=== PATIENT | female | born 1945 | race Caucasian/White ===

== ENCOUNTER → 2017-07-07 | Outpatient (REF) | payer MEDICARE ==
[2017-07-07 20:21] LABS: ALBUMIN 3.5 GM/DL (3.2-5.2); ALBUMIN/GLOBULIN RATIO 0.97 (1.00-1.93); ALKALINE PHOSPHATASE 71 U/L (45-117); ALT/SGPT 28 U/L (12-78); ANION GAP 8 MEQ/L (8-16); AST/SGOT 20 U/L (15-37); BILIRUBIN,TOTAL 1.1 MG/DL (0.2-1.0); BLOOD UREA NITROGEN 18 MG/DL (7-18); CALCIUM LEVEL 8.6 MG/DL (8.8-10.2); CARBON DIOXIDE LEVEL 27 MEQ/L (21-32); CHLORIDE LEVEL 107 MEQ/L (98-107); CHOLESTEROL LEVEL 183 MG/DL (<200); CREATININE FOR GFR 0.93 MG/DL (0.55-1.02); GLOMERULAR FILTRATION RATE > 60.0 (>39); GLUCOSE, FASTING 263 MG/DL (83-110); POTASSIUM SERUM 4.9 MEQ/L (3.5-5.1); SODIUM LEVEL 142 MEQ/L (136-145); TOTAL PROTEIN 7.1 GM/DL (6.4-8.2); TRIGLYCERIDES LEVEL 276 MG/DL (<150)
== END ==
LOC: M SFHCCLAY 10:07
PROVIDERS: ATTEND Family Medicine
DX: E11.65 Type 2 diabetes mellitus with hyperglycemia (principal); E78.00 Pure hypercholesterolemia, unspecified; R30.0 Dysuria
CPT/HCPCS: 36415; 80053; 80061; 81001; 83036; 87088; 87186; G0463

== ENCOUNTER → 2017-10-06 | Outpatient (REF) | payer MEDICARE ==
[2017-10-06 16:35] LABS: ANION GAP 6 MEQ/L (8-16); BLOOD UREA NITROGEN 15 MG/DL (7-18); CALCIUM LEVEL 8.9 MG/DL (8.8-10.2); CARBON DIOXIDE LEVEL 29 MEQ/L (21-32); CHLORIDE LEVEL 104 MEQ/L (98-107); CREATININE FOR GFR 0.96 MG/DL (0.55-1.02); GLOMERULAR FILTRATION RATE > 60.0 (>39); GLUCOSE, FASTING 286 MG/DL (83-110); POTASSIUM SERUM 4.4 MEQ/L (3.5-5.1); SODIUM LEVEL 139 MEQ/L (136-145)
== END ==
LOC: M SFHCCLAY 10:28
PROVIDERS: ATTEND Family Medicine
DX: E11.65 Type 2 diabetes mellitus with hyperglycemia (principal); E78.00 Pure hypercholesterolemia, unspecified; M54.16 Radiculopathy, lumbar region; K21.9 Gastro-esophageal reflux disease without esophagitis; G89.29 Other chronic pain; Z23 Encounter for immunization; Z79.891 Long term (current) use of opiate analgesic; Z79.4 Long term (current) use of insulin; Z79.82 Long term (current) use of aspirin; Z79.899 Other long term (current) drug therapy
CPT/HCPCS: 80048; 81001; 82043; 83036; 87088; 87186; 90732; G0009; G0463

== ENCOUNTER → 2018-01-14 | Outpatient (REF) | payer MEDICARE ==
[2018-01-14 16:58] LABS: ALBUMIN 3.8 GM/DL (3.2-5.2); ALBUMIN/GLOBULIN RATIO 1.03 (1.00-1.93); ALKALINE PHOSPHATASE 76 U/L (45-117); ALT/SGPT 35 U/L (12-78); ANION GAP 5 MEQ/L (8-16); AST/SGOT 24 U/L (7-37); BILIRUBIN,TOTAL 0.9 MG/DL (0.2-1.0); BLOOD UREA NITROGEN 16 MG/DL (7-18); CALCIUM LEVEL 9.4 MG/DL (8.8-10.2); CARBON DIOXIDE LEVEL 31 MEQ/L (21-32); CHLORIDE LEVEL 103 MEQ/L (98-107); CREATININE FOR GFR 0.85 MG/DL (0.55-1.30); GLOMERULAR FILTRATION RATE > 60.0 (>39); GLUCOSE, FASTING 287 MG/DL (70-100); POTASSIUM SERUM 4.7 MEQ/L (3.5-5.1); SODIUM LEVEL 139 MEQ/L (136-145); TOTAL PROTEIN 7.5 GM/DL (6.4-8.2)
[2018-01-14 17:33] LABS: APPEARANCE, URINE HAZY (CLEAR); BACTERIA, URINE AUTO 1+ (NEGATIVE); BILIRUBIN, URINE AUTO NEGATIVE (NEGATIVE); BLOOD, URINE BLOOD NEGATIVE (NEGATIVE); COLOR, URINE YELLOW (YELLOW); GLUCOSE, URINE (UA) AUTO 3+ mg/dL (NEGATIVE); KETONE, URINE AUTO NEGATIVE (NEGATIVE); LEUKOCYTE ESTERASE, URINE AUTO 1+ (NEGATIVE); MUCUS, URINE SMALL (NEGATIVE); NITRITE, URINE AUTO NEGATIVE (NEGATIVE); PROTEIN, URINE AUTO 2+ mg/dL (NEGATIVE); RBC, URINE AUTO 0 /HPF (0-3); SPECIFIC GRAVITY URINE AUTO 1.017 (1.002-1.035); SQUAMOUS EPITHELIAL CELL UR AU 0 /HPF (0-6); UROBILINOGEN, URINE AUTO 0.2 mg/dL (0.0-2.0); WBC, URINE AUTO 14 /HPF (0-3)
[2018-01-14 19:40] LABS: ESTIMATED AVERAGE GLUCOSE 246 MG/DL (60-110); HEMOGLOBIN A1c 10.2 %
== END ==
LOC: M SFHCCLAY 10:48
DX: E11.65 Type 2 diabetes mellitus with hyperglycemia (principal); Z79.4 Long term (current) use of insulin; Z79.899 Other long term (current) drug therapy
CPT/HCPCS: 80053

== ENCOUNTER → 2018-03-11 | Outpatient (REF) | payer MEDICARE ==
[2018-03-12 11:36] LABS: URIC ACID 5.7 MG/DL (2.6-6.0)
[2018-03-12 11:36] LABS: RHEUMATOID FACTOR QUANT < 10.0 IU/ML (<15.0)
[2018-03-12 12:54] LABS: ERYTHROCYTE SEDIMENTATION RATE 22 mm/hr (0-30)
[2018-03-14 00:07] LABS: ANTINUCLEAR ANTIBODIES DIRECT Negative (Negative)
== END ==
LOC: M SFHCCLAY 15:52
DX: E11.618 Type 2 diabetes mellitus with other diabetic arthropathy (principal)
CPT/HCPCS: 84550

== ENCOUNTER → 2018-03-11 | Outpatient (CLI) | payer MEDICARE | LOC: M CLY 16:08 | DX: E11.618 Type 2 diabetes mellitus with other diabetic arthropathy (principal) | CPT/HCPCS: 73130; 84550 ==

== ENCOUNTER → 2018-09-16 | Outpatient (REF) | payer MEDICARE ==
[2018-09-16 12:57] LABS: ALBUMIN 3.4 GM/DL (3.2-5.2); ALBUMIN/GLOBULIN RATIO 0.94 (1.00-1.93); ALKALINE PHOSPHATASE 67 U/L (45-117); ALT/SGPT 39 U/L (12-78); ANION GAP 10 MEQ/L (8-16); AST/SGOT 30 U/L (7-37); BILIRUBIN,TOTAL 0.7 MG/DL (0.2-1.0); BLOOD UREA NITROGEN 24 MG/DL (7-18); CARBON DIOXIDE LEVEL 27 MEQ/L (21-32); CHLORIDE LEVEL 103 MEQ/L (98-107); CHOLESTEROL LEVEL 166 MG/DL (<200); CHOLESTEROL RISK RATIO 4.256 (<5); CREATININE FOR GFR 1.03 MG/DL (0.55-1.30); GLOMERULAR FILTRATION RATE 55.8 (>39); GLUCOSE, FASTING 234 MG/DL (70-100); HDL CHOLESTEROL 39 MG/DL (>40); NON-HDL-C 127 MG/DL; POTASSIUM SERUM 4.7 MEQ/L (3.5-5.1); SODIUM LEVEL 140 MEQ/L (136-145); TRIGLYCERIDES LEVEL 408 MG/DL (<150)
== END ==
LOC: M LABDRAWC 11:26
DX: E78.00 Pure hypercholesterolemia, unspecified (principal)
CPT/HCPCS: 80053

== ENCOUNTER → 2018-11-02 | Outpatient (REF) | payer MEDICARE | LOC: M SFHCCLAY 10:24 | PROVIDERS: ATTEND Family Medicine | DX: M54.16 Radiculopathy, lumbar region (principal); R30.0 Dysuria | CPT/HCPCS: 81002; 87088; 87186; G0463 ==

== ENCOUNTER → 2019-01-25 | Outpatient (REF) | payer MEDICARE ==
[2019-01-25 16:32] LABS: ALBUMIN 3.5 GM/DL (3.2-5.2); ALT/SGPT 35 U/L (12-78); BILIRUBIN,TOTAL 0.7 MG/DL (0.2-1.0); BLOOD UREA NITROGEN 15 MG/DL (7-18); CALCIUM LEVEL 8.1 MG/DL (8.8-10.2); CARBON DIOXIDE LEVEL 28 MEQ/L (21-32); CHLORIDE LEVEL 107 MEQ/L (98-107); CHOLESTEROL LEVEL 184 MG/DL (<200); CREATININE FOR GFR 0.94 MG/DL (0.55-1.30); GLOMERULAR FILTRATION RATE > 60.0 (>39); GLUCOSE, FASTING 204 MG/DL (70-100); HDL CHOLESTEROL 42 MG/DL (>40); LDL CHOLESTEROL 92 MG/DL (<100); NON-HDL-C 142 MG/DL; POTASSIUM SERUM 4.2 MEQ/L (3.5-5.1); SODIUM LEVEL 142 MEQ/L (136-145); TOTAL PROTEIN 6.9 GM/DL (6.4-8.2); TRIGLYCERIDES LEVEL 252 MG/DL (<150)
[2019-01-25 16:48] LABS: CREATININE, URINE 64.2 MG/DL; MAU/CREAT RATIO 169.7 MCG/MG (0.0-30.0)
== END ==
LOC: M LABDRAWC 16:05
PROVIDERS: ATTEND Nurse Practitioner Family
DX: E78.00 Pure hypercholesterolemia, unspecified (principal); E11.65 Type 2 diabetes mellitus with hyperglycemia

== ENCOUNTER → 2019-04-20 | Outpatient (REF) | payer MEDICARE ==
[2019-04-20 12:52] LABS: ALBUMIN 3.6 GM/DL (3.2-5.2); ALT/SGPT 43 U/L (12-78); BILIRUBIN,TOTAL 0.9 MG/DL (0.2-1.0); BLOOD UREA NITROGEN 25 MG/DL (7-18); CALCIUM LEVEL 9.3 MG/DL (8.8-10.2); CARBON DIOXIDE LEVEL 28 MEQ/L (21-32); CHLORIDE LEVEL 104 MEQ/L (98-107); CREATININE FOR GFR 0.96 MG/DL (0.55-1.30); GLOMERULAR FILTRATION RATE > 60.0 (>39); GLUCOSE, FASTING 225 MG/DL (70-100); POTASSIUM SERUM 4.8 MEQ/L (3.5-5.1); SODIUM LEVEL 140 MEQ/L (136-145)
[2019-04-20 15:10] LABS: HEMOGLOBIN A1c 8.8 %
== END ==
LOC: M SFHCCLAY 08:49
PROVIDERS: ATTEND Family Medicine
DX: E11.9 Type 2 diabetes mellitus without complications (principal); E11.42 Type 2 diabetes mellitus with diabetic polyneuropathy

== ENCOUNTER → 2019-05-07 | Outpatient (REF) | payer MEDICARE ==
[2019-05-07 18:27] LABS: APPEARANCE, URINE HAZY (CLEAR); BACTERIA, URINE AUTO 1+ (NEGATIVE); BILIRUBIN, URINE AUTO NEGATIVE (NEGATIVE); BLOOD, URINE BLOOD NEGATIVE (NEGATIVE); COLOR, URINE YELLOW (YELLOW); GLUCOSE, URINE (UA) AUTO 2+ mg/dL (NEGATIVE); KETONE, URINE AUTO NEGATIVE (NEGATIVE); LEUKOCYTE ESTERASE, URINE AUTO TRACE (NEGATIVE); MUCUS, URINE SMALL (NEGATIVE); NITRITE, URINE AUTO NEGATIVE (NEGATIVE); PROTEIN, URINE AUTO NEGATIVE (NEGATIVE); RBC, URINE AUTO 1 /HPF (0-3); SPECIFIC GRAVITY URINE AUTO 1.015 (1.002-1.035); SQUAMOUS EPITHELIAL CELL UR AU 0 /HPF (0-6); UROBILINOGEN, URINE AUTO 0.2 mg/dL (0.0-2.0); WBC, URINE AUTO 7 /HPF (0-3)
== END ==
LOC: M SFHCCLAY 10:46
PROVIDERS: ATTEND Family Medicine
DX: E11.42 Type 2 diabetes mellitus with diabetic polyneuropathy (principal); Z79.899 Other long term (current) drug therapy
CPT/HCPCS: 81001; 87088; 87186; G0463

== ENCOUNTER → 2019-08-06 | Outpatient (REF) | payer MEDICARE ==
[2019-08-06 18:17] LABS: APPEARANCE, URINE CLEAR (CLEAR); BACTERIA, URINE AUTO NEGATIVE (NEGATIVE); BILIRUBIN, URINE AUTO NEGATIVE (NEGATIVE); BLOOD, URINE BLOOD NEGATIVE (NEGATIVE); COLOR, URINE STRAW (YELLOW); GLUCOSE, URINE (UA) AUTO NEGATIVE (NEGATIVE); KETONE, URINE AUTO NEGATIVE (NEGATIVE); LEUKOCYTE ESTERASE, URINE AUTO TRACE (NEGATIVE); NITRITE, URINE AUTO NEGATIVE (NEGATIVE); PROTEIN, URINE AUTO NEGATIVE (NEGATIVE); RBC, URINE AUTO 0 /HPF (0-3); SPECIFIC GRAVITY URINE AUTO 1.006 (1.002-1.035); SQUAMOUS EPITHELIAL CELL UR AU 0 /HPF (0-6); UROBILINOGEN, URINE AUTO 0.2 mg/dL (0.0-2.0); WBC, URINE AUTO 6 /HPF (0-3)
== END ==
LOC: M SFHCCLAY 12:01
PROVIDERS: ATTEND Family Medicine
DX: M54.16 Radiculopathy, lumbar region (principal)
CPT/HCPCS: 81001; 87088; 87186; G0463

== ENCOUNTER → 2020-05-08 | Outpatient (REF) | payer MEDICARE ==
[2020-05-09 12:15] LABS: BASO # 0.1 10^3/uL (0.0-0.2); BASO % 0.7 % (0.0-1.0); EOS # 0.5 10^3/uL (0.0-0.5); EOS % 5.2 % (0.0-3.0); HEMATOCRIT 39.4 % (36.0-47.0); LYMPH # 2.6 10^3/uL (1.5-5.0); LYMPH % 29.1 % (24.0-44.0); MEAN CORPUSCULAR HEMOGLOBIN 32.6 pg (27.0-33.0); MEAN CORPUSCULAR VOLUME 98.7 fl (80.0-96.0); MONO # 0.6 10^3/uL (0.0-0.8); MONO % 6.9 % (0.0-5.0); NEUTROPHILS # 5.2 10^3/uL (1.5-8.5); NEUTROPHILS % 57.9 % (36.0-66.0); PLATELET COUNT, AUTOMATED 219 10^3/uL (150-450); RED BLOOD COUNT 3.99 10^6/uL (4.00-5.40)
[2020-05-09 12:19] LABS: APPEARANCE, URINE HAZY (CLEAR); BACTERIA, URINE AUTO 1+ (NEGATIVE); BILIRUBIN, URINE AUTO NEGATIVE (NEGATIVE); BLOOD, URINE BLOOD NEGATIVE (NEGATIVE); COLOR, URINE YELLOW (YELLOW); GLUCOSE, URINE (UA) AUTO NEGATIVE (NEGATIVE); KETONE, URINE AUTO NEGATIVE (NEGATIVE); LEUKOCYTE ESTERASE, URINE AUTO 2+ (NEGATIVE); MUCUS, URINE SMALL (NEGATIVE); NITRITE, URINE AUTO POSITIVE (NEGATIVE); PROTEIN, URINE AUTO NEGATIVE (NEGATIVE); RBC, URINE AUTO 2 /HPF (0-3); SPECIFIC GRAVITY URINE AUTO 1.018 (1.002-1.035); SQUAMOUS EPITHELIAL CELL UR AU 1 /HPF (0-6); UROBILINOGEN, URINE AUTO 0.2 mg/dL (0.0-2.0); WBC, URINE AUTO 21 /HPF (0-3)
[2020-05-09 12:27] LABS: ALBUMIN 3.7 GM/DL (3.2-5.2); BILIRUBIN,TOTAL 0.9 MG/DL (0.2-1.0); CALCIUM LEVEL 9.3 MG/DL (8.8-10.2); CHOLESTEROL RISK RATIO 4.5 (<5); CREATININE FOR GFR 1.06 MG/DL (0.55-1.30); GLOMERULAR FILTRATION RATE 53.8 (>39); POTASSIUM SERUM 4.1 MEQ/L (3.5-5.1); TOTAL PROTEIN 7.5 GM/DL (6.4-8.2)
[2020-05-09 13:26] LABS: HEMOGLOBIN A1c 8.8 %
== END ==
LOC: M SFHCCLAY 14:56
PROVIDERS: ATTEND Family Medicine
DX: E11.9 Type 2 diabetes mellitus without complications (principal); Z78.9 Other specified health status
CPT/HCPCS: 80053; 80061; 81001; 83036; 85025; G0463

== ENCOUNTER → 2020-09-11 | Outpatient (REF) | payer MEDICARE ==
[2020-09-12 13:05] LABS: CREATININE, URINE 47.5 MG/DL; MALB URINE SIEMENS 37.2 MG/L; MAU/CREAT RATIO 78.3 MCG/MG (0.0-30.0)
== END ==
LOC: M LABDRAWC 11:23
PROVIDERS: ATTEND Nurse Practitioner Family
DX: E11.65 Type 2 diabetes mellitus with hyperglycemia (principal)

== ENCOUNTER → 2020-12-25 | Outpatient (REF) | payer MEDICARE ==
[2020-12-25 17:02] LABS: CALCIUM LEVEL 10.2 MG/DL (8.8-10.2); CREATININE FOR GFR 1.02 MG/DL (0.55-1.30); GLOMERULAR FILTRATION RATE 56.1 (>39)
== END ==
LOC: M SFHCCLAY 10:02
PROVIDERS: ATTEND Family Medicine
DX: I11.0 Hypertensive heart disease with heart failure (principal); I50.32 Chronic diastolic (congestive) heart failure
CPT/HCPCS: 80048; G0463

== ENCOUNTER → 2021-02-06 | Outpatient (REF) | payer MEDICARE | LOC: M SFHCCLAY 15:52 | PROVIDERS: ATTEND Physician Assistant | DX: R30.0 Dysuria (principal) | CPT/HCPCS: 81002; 87088; 87186; G0463 ==

== ENCOUNTER → 2021-02-13 | Outpatient (CLI) | payer MEDICARE ==
--- NOTE | 2021-02-16 12:35 | ECHO ---
DATE OF PROCEDURE: 02/13/2021 Age: 75 Gender: Female Height: 60 inches Weight: 200 pounds REFERRING PHYSICIAN: Jannette Guallpa DO INDICATION: Chronic diastolic heart failure, heart murmur unspecified. MEASUREMENTS: 2D Measurements: Aortic root 3.3 cm Left atrium 4.1 cm Proximal ascending aorta 4.1 cm Intraventricular septum 1.09 cm Posterior wall 1.07 cm Left ventricle diastole 4.4 cm Aortic annulus 2.3 cm Inferior vena cava 1.1 cm (more than 50% respiratory variation) Doppler Measurements: Mild aortic stenosis Very mild aortic regurgitation Aortic valve velocity 218 cm/s LVOT velocity 62.8 cm/s Very mild mitral regurgitation No mitral stenosis Mitral E velocity 79.1 cm/s Mitral A velocity 119 cm/s Very mild tricuspid regurgitation Estimated right ventricular systolic pressure 29-34 mmHg Estimated right atrial pressure 5-10 mmHg No pulmonic regurgitation Pulmonary artery acceleration time 124 msec MITRAL ANNULAR TISSUE DOPPLER E prime septal 3.4 cm/s, E prime lateral 3.7 cm/s DESCRIPTION: Rhythm was sinus. This was a moderately technically difficult echocardiogram. This was a 2D, M-mode, color flow Doppler, and pulsed wave Doppler examination including mitral annular tissue Doppler. CONCLUSIONS: 1. Akinesis of the basal and mid anteroseptal and inferoseptal LV segments. Akinesis of the basal and mid inferior segments. Hypokinesis of the basal and mid inferolateral LV segments. Normal wall motion and wall thickening elsewhere. Mild reduction of overall LV systolic function. LVEF 45% by visual assessment. 2. Severe focal thickening and focal calcific deposits of a 3-cuspid aortic valve with moderate reduction in aortic cusp mobility. Mild aortic stenosis. Very mild aortic regurgitation. 3. Mild left atrial dilatation. 4. Mild dilatation of the proximal ascending aorta. 5. Mild mitral annular calcification. Very mild mitral regurgitation. 6. Normal right ventricle size and systolic function. Normal right atrial size. Estimated right ventricular systolic pressure to be near the upper limits of normal to mildly elevated. 7. Tiny pericardial effusion. MTDD
== END ==
LOC: M CARPUL 08:26
PROVIDERS: ATTEND Family Medicine
DX: I08.8 Other rheumatic multiple valve diseases (principal); J90 Pleural effusion, not elsewhere classified; I50.32 Chronic diastolic (congestive) heart failure; R01.1 Cardiac murmur, unspecified

== ENCOUNTER → 2021-06-27 | Outpatient (REF) | payer MEDICARE ==
[2021-06-27 17:21] LABS: ALBUMIN 3.7 GM/DL (3.2-5.2); BLOOD UREA NITROGEN 21 MG/DL (7-18); CALCIUM LEVEL 9.2 MG/DL (8.8-10.2); CARBON DIOXIDE LEVEL 29 MEQ/L (21-32); CHLORIDE LEVEL 107 MEQ/L (98-107); CREATININE FOR GFR 0.92 MG/DL (0.55-1.30); GLOMERULAR FILTRATION RATE > 60.0 (>39); GLUCOSE, FASTING 119 MG/DL (70-100); NT-PRO BNP 329 PG/ML (<450); PHOSPHORUS LEVEL 4.2 MG/DL (2.5-4.9); POTASSIUM SERUM 4.4 MEQ/L (3.5-5.1); SODIUM LEVEL 142 MEQ/L (136-145)
== END ==
LOC: M LABDRAWC 15:42
PROVIDERS: ATTEND Internal Medicine Cardiovascular Disease
DX: I50.32 Chronic diastolic (congestive) heart failure (principal); I11.0 Hypertensive heart disease with heart failure

== ENCOUNTER → 2021-08-24 | Outpatient (REF) | payer MEDICARE ==
[2021-08-24 18:31] LABS: CALCIUM LEVEL 8.7 MG/DL (8.8-10.2); CREATININE FOR GFR 1.01 MG/DL (0.55-1.30); GLOMERULAR FILTRATION RATE 56.6 (>39); POTASSIUM SERUM 4.8 MEQ/L (3.5-5.1)
== END ==
LOC: M LABDRAWC 15:43
PROVIDERS: ATTEND Nurse Practitioner Family
DX: E11.65 Type 2 diabetes mellitus with hyperglycemia (principal)

== ENCOUNTER → 2021-10-29 | Outpatient (CLI) | payer MEDICARE ==
--- NOTE | 2021-10-29 11:38 | REP ---
INDICATION: THORACIC RADICULITIS COMPARISON: None. TECHNIQUE: AP, lateral, and swimmers views. FINDINGS: Generalized age-related degenerative changes and osteopenia. Alignment and kyphosis maintained. Findings include osteophytosis, endplate sclerosis, disc space narrowing. No acute fracture/compression injury or subluxation. IMPRESSION: Generalized osteopenia and moderate age-related multilevel degenerative spondylosis. <Electronically signed by Jorge Mcneill > 10/29/21 [id number]
--- NOTE | 2021-10-29 11:40 | REP ---
INDICATION: THORACIC RADICULITIS COMPARISON: None. TECHNIQUE: Frontal view of the chest with multiple views of the right hemithorax. FINDINGS: Frontal view of the chest demonstrates linear presumed chronic scarring in the left mid lung zone. Multiple views of the right hemithorax demonstrates no acute rib fracture/injury or pathology. IMPRESSION: No obvious acute right rib fracture or pathology noted. <Electronically signed by Jorge Mcneill > 10/29/21 1130
== END ==
LOC: M CLY 10:55
PROVIDERS: ATTEND Physician Assistant
DX: M54.14 Radiculopathy, thoracic region (principal); M85.88 Other specified disorders of bone density and structure, other site
CPT/HCPCS: 71101; 72072; G0463

== ENCOUNTER → 2022-01-09 | Outpatient (REF) | payer MEDICARE ==
[2022-01-09 17:01] LABS: CREATININE, URINE 51.7 MG/DL; MALB URINE SIEMENS 42.5 MG/L; MAU/CREAT RATIO 82.2 MCG/MG (0.0-30.0)
== END ==
LOC: M LAB REF 15:32
PROVIDERS: ATTEND Nurse Practitioner Family
DX: E11.65 Type 2 diabetes mellitus with hyperglycemia (principal)

== ENCOUNTER → 2022-01-16 | Outpatient (REF) | payer MEDICARE ==
[2022-01-16 17:29] LABS: CALCIUM LEVEL 9.7 MG/DL (8.8-10.2); CHOLESTEROL RISK RATIO 4.04 (<5); CREATININE FOR GFR 0.96 MG/DL (0.55-1.30); POTASSIUM SERUM 4.6 MEQ/L (3.5-5.1)
== END ==
LOC: M SFHCCLAY 11:35
PROVIDERS: ATTEND Family Medicine
DX: I11.0 Hypertensive heart disease with heart failure (principal); I50.32 Chronic diastolic (congestive) heart failure; E78.00 Pure hypercholesterolemia, unspecified

== ENCOUNTER → 2022-04-12 | Outpatient (REF) | payer MEDICARE ==
[2022-04-12 15:05] LABS: HEMATOCRIT 40.3 % (36.0-47.0); MEAN CORPUSCULAR HEMOGLOBIN 32.7 pg (27.0-33.0); MEAN CORPUSCULAR HGB CONC 32.3 g/dl (32.0-36.5); MEAN CORPUSCULAR VOLUME 101.5 fl (80.0-96.0); PLATELET COUNT, AUTOMATED 210 10^3/uL (150-450); RED BLOOD COUNT 3.97 10^6/uL (4.00-5.40); WHITE BLOOD COUNT 7.9 10^3/uL (4.0-10.0)
[2022-04-12 15:11] LABS: APPEARANCE, URINE HAZY (CLEAR); BACTERIA, URINE AUTO NEGATIVE (NEGATIVE); BILIRUBIN, URINE AUTO NEGATIVE (NEGATIVE); BLOOD, URINE BLOOD NEGATIVE (NEGATIVE); COLOR, URINE YELLOW (YELLOW); GLUCOSE, URINE (UA) AUTO NEGATIVE (NEGATIVE); KETONE, URINE AUTO NEGATIVE (NEGATIVE); LEUKOCYTE ESTERASE, URINE AUTO 3+ (NEGATIVE); MUCUS, URINE SMALL (NEGATIVE); NITRITE, URINE AUTO NEGATIVE (NEGATIVE); PROTEIN, URINE AUTO NEGATIVE (NEGATIVE); RBC, URINE AUTO 2 /HPF (0-3); SQUAMOUS EPITHELIAL CELL UR AU 0 /HPF (0-6); UROBILINOGEN, URINE AUTO 0.2 mg/dL (0.0-2.0); WBC, URINE AUTO 101 /HPF (0-3)
[2022-04-12 15:41] LABS: ALBUMIN 3.6 GM/DL (3.2-5.2); ALT/SGPT 23 U/L (12-78); BILIRUBIN,TOTAL 0.7 MG/DL (0.2-1.0); BLOOD UREA NITROGEN 14 MG/DL (7-18); CALCIUM LEVEL 9.2 MG/DL (8.8-10.2); CARBON DIOXIDE LEVEL 31 MEQ/L (21-32); CHLORIDE LEVEL 107 MEQ/L (98-107); CREATININE FOR GFR 0.92 MG/DL (0.55-1.30); GLOMERULAR FILTRATION RATE > 60.0 (>39); GLUCOSE, FASTING 79 MG/DL (70-100); POTASSIUM SERUM 4.1 MEQ/L (3.5-5.1); SODIUM LEVEL 140 MEQ/L (136-145); TOTAL PROTEIN 7.4 GM/DL (6.4-8.2)
== END ==
LOC: M SFHCCLAY 11:56
PROVIDERS: ATTEND Family Medicine
DX: I35.0 Nonrheumatic aortic (valve) stenosis (principal); Z79.899 Other long term (current) drug therapy

== ENCOUNTER → 2022-05-09 | Outpatient (REF) | payer MEDICARE ==
[2022-05-09 13:39] LABS: HEMOGLOBIN A1c 6.4 %
[2022-05-09 14:05] LABS: CREATININE, URINE 80.9 MG/DL; MALB URINE SIEMENS 21.7 MG/L; MAU/CREAT RATIO 26.8 MCG/MG (0.0-30.0)
== END ==
LOC: M SFHCCLAY 09:11
PROVIDERS: ATTEND Family Medicine
DX: E11.9 Type 2 diabetes mellitus without complications (principal)

== ENCOUNTER → 2022-07-09 | Outpatient (CLI) | payer MEDICARE | LOC: M CLY 10:42 | PROVIDERS: ATTEND Family Medicine | DX: M16.11 Unilateral primary osteoarthritis, right hip (principal) ==

== ENCOUNTER → 2023-01-16 | Outpatient (REF) | payer MEDICARE ==
[2023-01-16 17:55] LABS: ALBUMIN 3.5 G/DL (3.2-5.2); ALKALINE PHOSPHATASE 52 U/L (46-116); ALT/SGPT 29 U/L (7.0-40); AST/SGOT 29 U/L (<34); BILIRUBIN,TOTAL 0.7 MG/DL (0.3-1.2); BLOOD UREA NITROGEN 18 MG/DL (9-23); CALCIUM LEVEL 8.6 MG/DL (8.3-10.6); CARBON DIOXIDE LEVEL 30 MMOL/L (20-31); CHLORIDE LEVEL 104 MMOL/L (98-107); CHOLESTEROL LEVEL 181 MG/DL (<200); CHOLESTEROL RISK RATIO 4.21 (<5); CREATININE FOR GFR 0.83 MG/DL (0.55-1.30); GLOMERULAR FILTRATION RATE > 60.0 (>39); GLUCOSE, FASTING 91 MG/DL (74-106); HDL CHOLESTEROL 42.9 MG/DL (>40); LDL CHOLESTEROL 96.5 MG/DL (<100); NON-HDL-C 138 MG/DL; POTASSIUM SERUM 4.5 MMOL/L (3.5-5.1); SODIUM LEVEL 139 MMOL/L (136-145); TOTAL PROTEIN 6.5 G/DL (5.7-8.2); TRIGLYCERIDES LEVEL 208 MG/DL (<150)
== END ==
LOC: M LABDRAWC 17:00
PROVIDERS: ATTEND Nurse Practitioner Family
DX: R78.0 Finding of alcohol in blood (principal); E78.00 Pure hypercholesterolemia, unspecified

== ENCOUNTER → 2023-04-30 | Outpatient (REF) | payer MEDICARE ==
[2023-04-30 17:52] LABS: BASO % 0.6 % (0.0-1.0); EOS # 0.4 10^3/uL (0.0-0.5); EOS % 5.9 % (0.0-3.0); HEMATOCRIT 38.4 % (36.0-47.0); HEMOGLOBIN 12.4 g/dl (12.0-15.5); HEMOGLOBIN A1c 6.8 % (4.0-6.0); LYMPH % 28.8 % (24.0-44.0); MEAN CORPUSCULAR HEMOGLOBIN 32.1 pg (27.0-33.0); MEAN CORPUSCULAR HGB CONC 32.3 g/dl (32.0-36.5); MEAN CORPUSCULAR VOLUME 99.5 fl (80.0-96.0); MONO # 0.6 10^3/uL (0.0-0.8); MONO % 9.1 % (2.0-8.0); NEUTROPHILS # 3.8 10^3/uL (1.5-8.5); NEUTROPHILS % 55.3 % (36.0-66.0); PLATELET COUNT, AUTOMATED 237 10^3/uL (150-450); RED BLOOD COUNT 3.86 10^6/uL (4.00-5.40); WHITE BLOOD COUNT 6.9 10^3/uL (4.0-10.0)
[2023-04-30 17:56] LABS: APPEARANCE, URINE HAZY (CLEAR); BACTERIA, URINE AUTO 3+ (NEGATIVE); BILIRUBIN, URINE AUTO NEGATIVE (NEGATIVE); BLOOD, URINE BLOOD NEGATIVE (NEGATIVE); COLOR, URINE YELLOW (YELLOW); GLUCOSE, URINE (UA) AUTO NEGATIVE (NEGATIVE); KETONE, URINE AUTO NEGATIVE (NEGATIVE); LEUKOCYTE ESTERASE, URINE AUTO 3+ (NEGATIVE); NITRITE, URINE AUTO NEGATIVE (NEGATIVE); PROTEIN, URINE AUTO NEGATIVE (NEGATIVE); RBC, URINE AUTO 2 /HPF (0-3); SPECIFIC GRAVITY URINE AUTO 1.013 (1.002-1.035); SQUAMOUS EPITHELIAL CELL UR AU 1 /HPF (0-6); UROBILINOGEN, URINE AUTO 0.2 mg/dL (0.0-2.0); WBC, URINE AUTO 117 /HPF (0-3)
[2023-04-30 18:11] LABS: ALBUMIN 3.6 G/DL (3.2-5.2); ALKALINE PHOSPHATASE 59 U/L (46-116); ALT/SGPT 23 U/L (7.0-40); AST/SGOT 22 U/L (<34); BILIRUBIN,TOTAL 0.5 MG/DL (0.3-1.2); BLOOD UREA NITROGEN 19 MG/DL (9-23); CALCIUM LEVEL 8.7 MG/DL (8.3-10.6); CARBON DIOXIDE LEVEL 28 MMOL/L (20-31); CHLORIDE LEVEL 104 MMOL/L (98-107); CREATININE FOR GFR 0.85 MG/DL (0.55-1.30); GLOMERULAR FILTRATION RATE > 60.0 (>39); GLUCOSE, FASTING 148 MG/DL (74-106); POTASSIUM SERUM 4.6 MMOL/L (3.5-5.1); SODIUM LEVEL 139 MMOL/L (136-145); TOTAL PROTEIN 6.7 G/DL (5.7-8.2)
[2023-04-30 18:14] LABS: MAU/CREAT RATIO 27.6 MCG/MG (0.0-30.0)
== END ==
LOC: M SFHCCLAY 09:55
PROVIDERS: ATTEND Family Medicine
DX: E11.9 Type 2 diabetes mellitus without complications (principal); K11.20 Sialoadenitis, unspecified; H60.92 Unspecified otitis externa, left ear

== ENCOUNTER → 2023-06-16 | Outpatient (CLI) | payer MEDICARE, OTHER | LOC: M RAD 13:31 | PROVIDERS: ATTEND Otolaryngology | DX: K11.20 Sialoadenitis, unspecified (principal) ==

== ENCOUNTER → 2023-10-30 | Outpatient (CLI) | payer MEDICARE, OTHER | LOC: M WUC 12:25 | PROVIDERS: ATTEND Nurse Practitioner Family | DX: R06.02 Shortness of breath (principal) ==

== ENCOUNTER → 2023-11-04 | Outpatient (REF) | payer MEDICARE ==
[2023-11-04 17:43] LABS: BASO % 0.4 % (0.0-1.0); EOS # 0.4 10^3/uL (0.0-0.5); EOS % 4.5 % (0.0-3.0); HEMATOCRIT 32.3 % (36.0-47.0); LYMPH # 1.4 10^3/uL (1.5-5.0); LYMPH % 14.6 % (24.0-44.0); MEAN CORPUSCULAR HEMOGLOBIN 30.7 pg (27.0-33.0); MEAN CORPUSCULAR VOLUME 99.1 fl (80.0-96.0); MONO # 0.7 10^3/uL (0.0-0.8); MONO % 6.8 % (2.0-8.0); NEUTROPHILS # 7.1 10^3/uL (1.5-8.5); NEUTROPHILS % 73.3 % (36.0-66.0); PLATELET COUNT, AUTOMATED 345 10^3/uL (150-450); RED BLOOD COUNT 3.26 10^6/uL (4.00-5.40); WHITE BLOOD COUNT 9.6 10^3/uL (4.0-10.0)
[2023-11-04 18:04] LABS: ALBUMIN 3.5 G/DL (3.2-5.2); ALKALINE PHOSPHATASE 61 U/L (46-116); ALT/SGPT 28 U/L (7.0-40); AST/SGOT 24 U/L (<34); BILIRUBIN,TOTAL 0.6 MG/DL (0.3-1.2); BLOOD UREA NITROGEN 24 MG/DL (9-23); CALCIUM LEVEL 9.6 MG/DL (8.3-10.6); CARBON DIOXIDE LEVEL 27 MMOL/L (20-31); CHLORIDE LEVEL 103 MMOL/L (98-107); CREATININE FOR GFR 0.98 MG/DL (0.55-1.30); GLOMERULAR FILTRATION RATE 58.3 (>39); GLUCOSE, FASTING 258 MG/DL (74-106); IRON (FE) 17 UG/DL (50-170); PERCENT SATURATION 4.7 % (13.2-45.0); POTASSIUM SERUM 4.8 MMOL/L (3.5-5.1); SODIUM LEVEL 137 MMOL/L (136-145); TOTAL IRON BINDING CAPACITY 359 UG/DL (250-425); TOTAL PROTEIN 7.4 G/DL (5.7-8.2)
[2023-11-04 18:09] LABS: FERRITIN 11.9 NG/ML (7.3-270.7)
[2023-11-04 18:11] LABS: FOLATE > 24.00 NG/ML (>5.4)
[2023-11-04 18:27] LABS: VITAMIN B12 LEVEL > 2000 PG/ML (211-911)
== END ==
LOC: M SFHCCLAY 10:14
PROVIDERS: ATTEND Physician Assistant
DX: D64.9 Anemia, unspecified (principal); I50.32 Chronic diastolic (congestive) heart failure; R06.02 Shortness of breath

== ENCOUNTER → 2024-01-12 | Outpatient (REF) | payer MEDICARE ==
[2024-01-12 18:29] LABS: BASO % 0.5 % (0.0-1.0); EOS # 0.5 10^3/uL (0.0-0.5); EOS % 5.9 % (0.0-3.0); HEMATOCRIT 31.8 % (36.0-47.0); HEMOGLOBIN 9.5 g/dl (12.0-15.5); LYMPH # 1.4 10^3/uL (1.5-5.0); LYMPH % 16.4 % (24.0-44.0); MEAN CORPUSCULAR HEMOGLOBIN 28.8 pg (27.0-33.0); MEAN CORPUSCULAR HGB CONC 29.9 g/dl (32.0-36.5); MEAN CORPUSCULAR VOLUME 96.4 fl (80.0-96.0); MONO # 0.7 10^3/uL (0.0-0.8); MONO % 7.9 % (2.0-8.0); NEUTROPHILS # 5.9 10^3/uL (1.5-8.5); NEUTROPHILS % 68.8 % (36.0-66.0); PLATELET COUNT, AUTOMATED 254 10^3/uL (150-450); WHITE BLOOD COUNT 8.5 10^3/uL (4.0-10.0)
[2024-01-12 19:01] LABS: ALBUMIN 3.4 G/DL (3.2-5.2); BILIRUBIN,TOTAL 0.7 MG/DL (0.3-1.2); CALCIUM LEVEL 8.9 MG/DL (8.3-10.6); CHOLESTEROL RISK RATIO 3.03 (<5); CREATININE FOR GFR 1.05 MG/DL (0.55-1.30); GLOMERULAR FILTRATION RATE 53.8 (>39); HDL CHOLESTEROL 38.2 MG/DL (>40); LDL CHOLESTEROL 47.2 MG/DL (<100); NON-HDL-C 77.8 MG/DL; POTASSIUM SERUM 4.5 MMOL/L (3.5-5.1)
[2024-01-12 19:15] LABS: HEMOGLOBIN A1c 6.7 % (4.0-6.0)
== END ==
LOC: M SFHCCLAY 11:15
PROVIDERS: ATTEND Physician Assistant
DX: R06.02 Shortness of breath (principal); E11.9 Type 2 diabetes mellitus without complications; E78.00 Pure hypercholesterolemia, unspecified; I50.32 Chronic diastolic (congestive) heart failure

== ENCOUNTER → 2024-01-12 | Outpatient (CLI) | payer MEDICARE | LOC: M CLY 10:29 | PROVIDERS: ATTEND Physician Assistant | DX: J90 Pleural effusion, not elsewhere classified (principal) ==

== ENCOUNTER → 2024-03-02 | Outpatient (REF) | payer MEDICARE ==
[2024-03-02 18:12] LABS: BASO # 0.1 10^3/uL (0.0-0.2); BASO % 0.6 % (0.0-1.0); EOS # 0.4 10^3/uL (0.0-0.5); EOS % 4.9 % (0.0-3.0); HEMATOCRIT 33.3 % (36.0-47.0); HEMOGLOBIN 10.1 g/dl (12.0-15.5); LYMPH # 1.7 10^3/uL (1.5-5.0); LYMPH % 21.6 % (24.0-44.0); MEAN CORPUSCULAR HEMOGLOBIN 29.4 pg (27.0-33.0); MEAN CORPUSCULAR HGB CONC 30.3 g/dl (32.0-36.5); MEAN CORPUSCULAR VOLUME 96.8 fl (80.0-96.0); MONO # 0.8 10^3/uL (0.0-0.8); MONO % 9.9 % (2.0-8.0); NEUTROPHILS # 4.9 10^3/uL (1.5-8.5); NEUTROPHILS % 62.7 % (36.0-66.0); PLATELET COUNT, AUTOMATED 200 10^3/uL (150-450); RED BLOOD COUNT 3.44 10^6/uL (4.00-5.40); WHITE BLOOD COUNT 7.8 10^3/uL (4.0-10.0)
[2024-03-02 18:34] LABS: LDH LACTATE DEHYDROGENASE 312 U/L (120-246)
[2024-03-02 18:35] LABS: IRON (FE) 42 UG/DL (50-170)
[2024-03-02 18:36] LABS: TOTAL IRON BINDING CAPACITY 382 UG/DL (250-425)
[2024-03-02 18:39] LABS: FOLATE > 24.00 NG/ML (>5.4)
[2024-03-02 18:44] LABS: VITAMIN B12 LEVEL > 2000 PG/ML (211-911)
== END ==
LOC: M SFHCCLAY 10:29
PROVIDERS: ATTEND Family Medicine
DX: I21.4 Non-ST elevation (NSTEMI) myocardial infarction (principal); I50.32 Chronic diastolic (congestive) heart failure; K21.9 Gastro-esophageal reflux disease without esophagitis; D53.9 Nutritional anemia, unspecified

== ENCOUNTER → 2024-05-05 | Outpatient (REF) | payer MEDICARE ==
[2024-05-05 18:44] LABS: ALBUMIN 3.5 G/DL (3.2-5.2); CALCIUM LEVEL 9.5 MG/DL (8.3-10.6); CHOLESTEROL RISK RATIO 2.27 (<5); CREATININE FOR GFR 1.11 MG/DL (0.55-1.30); GLOMERULAR FILTRATION RATE 50.5 (>39); HDL CHOLESTEROL 43.5 MG/DL (>40); LDL CHOLESTEROL 41.3 MG/DL (<100); NON-HDL-C 55.5 MG/DL; POTASSIUM SERUM 4.2 MMOL/L (3.5-5.1)
[2024-05-05 18:57] LABS: HEMOGLOBIN A1c 5.9 % (4.0-6.0)
== END ==
LOC: M SFHCCLAY 10:53
PROVIDERS: ATTEND Family Medicine
DX: E11.42 Type 2 diabetes mellitus with diabetic polyneuropathy (principal); I10 Essential (primary) hypertension; I21.4 Non-ST elevation (NSTEMI) myocardial infarction

== ENCOUNTER → 2024-06-08 | Outpatient (REF) | payer MEDICARE ==
[2024-06-08 18:05] LABS: BASO % 0.5 % (0.0-1.0); CALCIUM LEVEL 8.8 MG/DL (8.3-10.6); CREATININE FOR GFR 1.03 MG/DL (0.55-1.30); EOS # 0.4 10^3/uL (0.0-0.5); EOS % 4.5 % (0.0-3.0); HEMATOCRIT 30.7 % (36.0-47.0); HEMOGLOBIN 9.1 g/dl (12.0-15.5); LYMPH # 1.5 10^3/uL (1.5-5.0); LYMPH % 18.6 % (24.0-44.0); MEAN CORPUSCULAR HEMOGLOBIN 29.8 pg (27.0-33.0); MEAN CORPUSCULAR HGB CONC 29.6 g/dl (32.0-36.5); MEAN CORPUSCULAR VOLUME 100.7 fl (80.0-96.0); MONO # 0.8 10^3/uL (0.0-0.8); MONO % 9.8 % (2.0-8.0); NEUTROPHILS # 5.3 10^3/uL (1.5-8.5); NEUTROPHILS % 66.3 % (36.0-66.0); PLATELET COUNT, AUTOMATED 232 10^3/uL (150-450); POTASSIUM SERUM 3.6 MMOL/L (3.5-5.1); RED BLOOD COUNT 3.05 10^6/uL (4.00-5.40)
== END ==
LOC: M SFHCCLAY 11:07
PROVIDERS: ATTEND Family Medicine
DX: E11.9 Type 2 diabetes mellitus without complications (principal); D50.0 Iron deficiency anemia secondary to blood loss (chronic)

== ENCOUNTER → 2024-06-09 | Outpatient (REF) | payer MEDICARE | LOC: M SFHCCLAY 16:34 | PROVIDERS: ATTEND Family Medicine | DX: E11.9 Type 2 diabetes mellitus without complications (principal); D50.0 Iron deficiency anemia secondary to blood loss (chronic); K52.9 Noninfective gastroenteritis and colitis, unspecified ==

== ENCOUNTER → 2024-08-06 | Outpatient (REF) | payer MEDICARE ==
[2024-08-06 17:54] LABS: BASO # 0.1 10^3/uL (0.0-0.2); BASO % 0.8 % (0.0-1.0); EOS # 0.3 10^3/uL (0.0-0.5); EOS % 4.1 % (0.0-3.0); HEMATOCRIT 33.5 % (36.0-47.0); HEMOGLOBIN 10.2 g/dl (12.0-15.5); LYMPH # 1.1 10^3/uL (1.5-5.0); LYMPH % 14.9 % (24.0-44.0); MEAN CORPUSCULAR HEMOGLOBIN 30.1 pg (27.0-33.0); MEAN CORPUSCULAR HGB CONC 30.4 g/dl (32.0-36.5); MEAN CORPUSCULAR VOLUME 98.8 fl (80.0-96.0); MONO # 0.5 10^3/uL (0.0-0.8); MONO % 6.7 % (2.0-8.0); NEUTROPHILS # 5.3 10^3/uL (1.5-8.5); NEUTROPHILS % 73.2 % (36.0-66.0); PLATELET COUNT, AUTOMATED 223 10^3/uL (150-450); RED BLOOD COUNT 3.39 10^6/uL (4.00-5.40); WHITE BLOOD COUNT 7.3 10^3/uL (4.0-10.0)
[2024-08-06 17:57] LABS: TOTAL IRON BINDING CAPACITY 326 UG/DL (250-425)
[2024-08-06 17:58] LABS: ALBUMIN 3.1 G/DL (3.2-5.2); ALKALINE PHOSPHATASE 53 U/L (46-116); ALT/SGPT 27 U/L (7.0-40); AST/SGOT 30 U/L (<34); BILIRUBIN,TOTAL 0.9 MG/DL (0.3-1.2); BLOOD UREA NITROGEN 21 MG/DL (9-23); CALCIUM LEVEL 8.9 MG/DL (8.3-10.6); CARBON DIOXIDE LEVEL 33 MMOL/L (20-31); CHLORIDE LEVEL 105 MMOL/L (98-107); CHOLESTEROL LEVEL 103 MG/DL (<200); CHOLESTEROL RISK RATIO 2.58 (<5); CREATININE FOR GFR 0.98 MG/DL (0.55-1.30); GLOMERULAR FILTRATION RATE 58.1 (>32); GLUCOSE, FASTING 116 MG/DL (74-106); HDL CHOLESTEROL 39.8 MG/DL (>40); IRON (FE) 107 UG/DL (50-170); LDL CHOLESTEROL 46.8 MG/DL (<100); NON-HDL-C 63.2 MG/DL; PERCENT SATURATION 32.8 % (13.2-45.0); POTASSIUM SERUM 4.3 MMOL/L (3.5-5.1); SODIUM LEVEL 137 MMOL/L (136-145); TOTAL PROTEIN 6.5 G/DL (5.7-8.2); TRIGLYCERIDES LEVEL 82 MG/DL (<150)
[2024-08-06 18:08] LABS: HEMOGLOBIN A1c 5.4 % (4.0-6.0)
== END ==
LOC: M SFHCCLAY 07:02
PROVIDERS: ATTEND Family Medicine
DX: D50.0 Iron deficiency anemia secondary to blood loss (chronic) (principal); E11.9 Type 2 diabetes mellitus without complications

== ENCOUNTER → 2024-10-27 | Outpatient (REF) | payer MEDICARE ==
[2024-10-27 17:00] LABS: BASO # 0.1 10^3/uL (0.0-0.2); BASO % 0.9 % (0.0-1.0); EOS % 0.6 % (0.0-3.0); HEMATOCRIT 27.8 % (36.0-47.0); HEMOGLOBIN 8.3 g/dl (12.0-15.5); LYMPH # 0.6 10^3/uL (1.5-5.0); LYMPH % 8.1 % (24.0-44.0); MEAN CORPUSCULAR HEMOGLOBIN 28.6 pg (27.0-33.0); MEAN CORPUSCULAR HGB CONC 29.9 g/dl (32.0-36.5); MEAN CORPUSCULAR VOLUME 95.9 fl (80.0-96.0); MONO # 0.5 10^3/uL (0.0-0.8); MONO % 6.6 % (2.0-8.0); NEUTROPHILS # 5.7 10^3/uL (1.5-8.5); NEUTROPHILS % 83.5 % (36.0-66.0); PLATELET COUNT, AUTOMATED 293 10^3/uL (150-450); WHITE BLOOD COUNT 6.8 10^3/uL (4.0-10.0)
[2024-10-27 17:18] LABS: HEMOGLOBIN A1c 5.3 % (4.0-6.0)
[2024-10-27 17:35] LABS: FERRITIN 37.5 NG/ML (7.3-270.7)
[2024-10-27 17:36] LABS: PERCENT SATURATION 41.6 % (13.2-45.0)
[2024-10-27 17:37] LABS: ALBUMIN 2.9 G/DL (3.2-5.2); BILIRUBIN,TOTAL 1.5 MG/DL (0.3-1.2); CALCIUM LEVEL 9.5 MG/DL (8.3-10.6); CHOLESTEROL RISK RATIO 2.21 (<5); GLOMERULAR FILTRATION RATE 56.8 (>32); HDL CHOLESTEROL 50.1 MG/DL (>40); LDL CHOLESTEROL 50.3 MG/DL (<100); MAGNESIUM LEVEL 1.8 MG/DL (1.8-2.4); NON-HDL-C 60.9 MG/DL; POTASSIUM SERUM 4.2 MMOL/L (3.5-5.1); TOTAL PROTEIN 6.7 G/DL (5.7-8.2)
[2024-10-27 17:39] LABS: FREE T4 0.91 NG/DL (0.89-1.76)
[2024-10-27 17:40] LABS: THYROID STIMULATING HORMONE 13.481 uIU/ML (0.55-4.78)
== END ==
LOC: M SFHCCLAY 11:02
PROVIDERS: ATTEND Nurse Practitioner Family
DX: R06.02 Shortness of breath (principal); E11.9 Type 2 diabetes mellitus without complications; I10 Essential (primary) hypertension; D50.0 Iron deficiency anemia secondary to blood loss (chronic); M54.16 Radiculopathy, lumbar region; I87.312 Chronic venous hypertension (idiopathic) with ulcer of left lower extremity; I25.10 Atherosclerotic heart disease of native coronary artery without angina pectoris

== ENCOUNTER → 2024-11-05 | Outpatient (REF) | payer MEDICARE | LOC: M SFHCCLAY 13:37 | PROVIDERS: ATTEND Nurse Practitioner Family | DX: R06.02 Shortness of breath (principal); E11.9 Type 2 diabetes mellitus without complications; I10 Essential (primary) hypertension; D50.0 Iron deficiency anemia secondary to blood loss (chronic); M54.16 Radiculopathy, lumbar region; I87.312 Chronic venous hypertension (idiopathic) with ulcer of left lower extremity; I25.10 Atherosclerotic heart disease of native coronary artery without angina pectoris; Z53.9 Procedure and treatment not carried out, unspecified reason ==

== ENCOUNTER → 2024-12-24 | Outpatient (REF) | payer MEDICARE ==
[2024-12-24 17:25] LABS: BASO % 0.4 % (0.0-1.0); EOS # 0.2 10^3/uL (0.0-0.5); EOS % 2.8 % (0.0-3.0); HEMATOCRIT 32.4 % (36.0-47.0); HEMOGLOBIN 10.3 g/dl (12.0-15.5); LYMPH # 0.9 10^3/uL (1.5-5.0); LYMPH % 10.9 % (24.0-44.0); MEAN CORPUSCULAR HEMOGLOBIN 30.5 pg (27.0-33.0); MEAN CORPUSCULAR HGB CONC 31.8 g/dl (32.0-36.5); MEAN CORPUSCULAR VOLUME 95.9 fl (80.0-96.0); MONO # 0.6 10^3/uL (0.0-0.8); MONO % 7.5 % (2.0-8.0); NEUTROPHILS # 6.5 10^3/uL (1.5-8.5); PLATELET COUNT, AUTOMATED 249 10^3/uL (150-450); RED BLOOD COUNT 3.38 10^6/uL (4.00-5.40); WHITE BLOOD COUNT 8.3 10^3/uL (4.0-10.0)
[2024-12-24 17:44] LABS: IRON (FE) 74 UG/DL (50-170); PERCENT SATURATION 22.8 % (13.2-45.0); TOTAL IRON BINDING CAPACITY 324 UG/DL (250-425)
[2024-12-24 17:45] LABS: ALBUMIN 2.9 G/DL (3.2-5.2); ALKALINE PHOSPHATASE 62 U/L (35-104); ALT/SGPT 22 U/L (7.0-40); AST/SGOT 22 U/L (<34); BILIRUBIN,TOTAL 0.8 MG/DL (0.3-1.2); BLOOD UREA NITROGEN 17 MG/DL (9-23); CALCIUM LEVEL 8.6 MG/DL (8.3-10.6); CARBON DIOXIDE LEVEL 32 MMOL/L (20-31); CHLORIDE LEVEL 100 MMOL/L (98-107); CHOLESTEROL LEVEL 100 MG/DL (<200); CHOLESTEROL RISK RATIO 2.23 (<5); CREATININE FOR GFR 0.82 MG/DL (0.55-1.30); GLOMERULAR FILTRATION RATE > 60.0 (>32); GLUCOSE, FASTING 157 MG/DL (74-106); HDL CHOLESTEROL 44.8 MG/DL (>40); LDL CHOLESTEROL 41.4 MG/DL (<100); NON-HDL-C 55.2 MG/DL; POTASSIUM SERUM 3.7 MMOL/L (3.5-5.1); SODIUM LEVEL 139 MMOL/L (136-145); TOTAL PROTEIN 6.7 G/DL (5.7-8.2); TRIGLYCERIDES LEVEL 69 MG/DL (<150)
[2024-12-24 17:48] LABS: FERRITIN 31.3 NG/ML (7.3-270.7); FREE T4 1.17 NG/DL (0.89-1.76)
[2024-12-24 17:51] LABS: HEMOGLOBIN A1c 6.3 % (4.0-6.0)
== END ==
LOC: M SFHCCLAY 13:33
PROVIDERS: ATTEND Nurse Practitioner Family
DX: E03.9 Hypothyroidism, unspecified (principal); R79.89 Other specified abnormal findings of blood chemistry; R06.02 Shortness of breath; E11.9 Type 2 diabetes mellitus without complications; I10 Essential (primary) hypertension; D50.0 Iron deficiency anemia secondary to blood loss (chronic); M54.16 Radiculopathy, lumbar region; I87.312 Chronic venous hypertension (idiopathic) with ulcer of left lower extremity; I25.10 Atherosclerotic heart disease of native coronary artery without angina pectoris

== ENCOUNTER → 2025-01-26 | Outpatient (CLI) | payer MEDICARE ==
[~2025-01-26] MED LIST: BARIUM SULFATE 700 MG TABLET (E-Z-DISK) As Ordered ONE; E-Z-PAQUE 96% w/w SUSP 176GM BTL As Ordered ONE; VARIBAR NECTAR 40% w/v 240ML SUSP BTL As Ordered ONE; VARIBAR PUDDING 40% w/v 230ML TUBE As Ordered ONE
== END ==
LOC: M RAD 12:09
PROVIDERS: ATTEND Otolaryngology
DX: R13.19 Other dysphagia (principal)

== ENCOUNTER 2025-02-04 07:05 | Inpatient (IN) | payer MEDICARE ==
[~2025-02-04] VITALS: Ht 152.4 cm; Wt 71.2 kg
[2025-02-04 08:28] LABS: BASO % 0.3 % (0.0-1.0); EOS # 0.1 10^3/uL (0.0-0.5); EOS % 0.4 % (0.0-3.0); HEMATOCRIT 33.4 % (36.0-47.0); HEMOGLOBIN 10.5 g/dl (12.0-15.5); LYMPH # 0.5 10^3/uL (1.5-5.0); LYMPH % 4.6 % (24.0-44.0); MEAN CORPUSCULAR HEMOGLOBIN 30.5 pg (27.0-33.0); MEAN CORPUSCULAR HGB CONC 31.4 g/dl (32.0-36.5); MEAN CORPUSCULAR VOLUME 97.1 fl (80.0-96.0); MONO # 0.8 10^3/uL (0.0-0.8); MONO % 6.6 % (2.0-8.0); NEUTROPHILS # 10.4 10^3/uL (1.5-8.5); NEUTROPHILS % 87.7 % (36.0-66.0); PLATELET COUNT, AUTOMATED 307 10^3/uL (150-450); RED BLOOD COUNT 3.44 10^6/uL (4.00-5.40); WHITE BLOOD COUNT 11.8 10^3/uL (4.0-10.0)
[2025-02-04] MEDS: KETOROLAC 30 MG/ML 1ML VIAL IV ONE (08:29)
[2025-02-04] MEDS ORDERED: ISOVUE-370 76% 100ML VIAL As Ordered ONE (08:43)
[2025-02-04 12:35] LABS: KETONE, URINE AUTO RFX TRACE mg/dL (NEGATIVE); NITRITE, URINE AUTO RFX NEGATIVE (NEGATIVE); RBC, URINE AUTO RFX 4 /HPF (0-3); SQUAM EPITHELIAL CELL UR AURFX 1 /HPF (0-6)
[2025-02-04 12:36] LABS: LEUKOCYTE ESTERASE UR AUTO RFX 3+ (NEGATIVE); WBC, URINE AUTO RFX TNTC /HPF (0-3)
[2025-02-04] MEDS ORDERED: VANCOMYCIN HCL 1,000 MG, VIAL MATE ADAPTER 1 EACH in NS 250 ML IV SCH (12:55)
[2025-02-04] MEDS ORDERED: MOM 30ML SUSPENSION UDC PO PRN (12:55)
[2025-02-04] MEDS ORDERED: MAALOX 30 ML SUSP *UDC PO PRN (12:55)
[2025-02-04] MEDS ORDERED: GLUCOSE 4 GM CHEW PO PRN (13:50)
[2025-02-04] MEDS ORDERED: DEXTROSE 50% 50ML SYRINGE IV PRN (13:50)
[2025-02-04] MEDS ORDERED: GLUCAGON INJ 1MG VIAL SC PRN (13:50)
[2025-02-04] MEDS: PIPERACILLIN/TAZOBACTAM SOD 3.375 GM in DEXTROSE 5% (D5W) ADV/MINI-BAG 50 ML IV SCH (14:07)
[2025-02-04 14:10] LABS: INR 1.06; PARTIAL THROMBOPLASTIN TIME 33.1 SECONDS (24.8-34.2); PROTHROMBIN TIME 14.1 SECONDS (12.5-14.5)
[2025-02-04 14:24] LABS: ALBUMIN 2.6 G/DL (3.2-5.2); ALKALINE PHOSPHATASE 60 U/L (35-104); ALT/SGPT 15 U/L (7.0-40); AST/SGOT 17 U/L (<34); BILIRUBIN,DIRECT 0.4 MG/DL (<0.4); BLOOD UREA NITROGEN 14 MG/DL (9-23); CALCIUM LEVEL 8.7 MG/DL (8.3-10.6); CARBON DIOXIDE LEVEL 29 MMOL/L (20-31); CHLORIDE LEVEL 96 MMOL/L (98-107); CREATININE FOR GFR 0.75 MG/DL (0.55-1.30); GLOMERULAR FILTRATION RATE > 60.0 (>32); GLUCOSE, FASTING 149 MG/DL (74-106); MAGNESIUM LEVEL 2.2 MG/DL (1.8-2.4); POTASSIUM SERUM 4.6 MMOL/L (3.5-5.1); SODIUM LEVEL 136 MMOL/L (136-145); TOTAL PROTEIN 6.9 G/DL (5.7-8.2)
[2025-02-04] MEDS ORDERED: NS (Normal Saline) 0.9% 1,000 ML IV SCH (14:25)
[2025-02-04 14:31] LABS: PROCALCITONIN 0.08 ng/ml
[2025-02-04] MEDS: fentaNYL 100 MCG/2 ML INJECTION IV PRN (15:35)
[2025-02-04] MEDS: MIDAZOLAM INJ 2MG/2ML VIAL IV PRN (15:35)
[2025-02-04 15:57] LABS: C REACTIVE PROTEIN QUANTITATIV 3.17 MG/DL (<1.0)
[2025-02-04] MEDS: HEPARIN 1,000UNITS/ML 10ML VIAL (FOR RADIOLOGY & DIALYSIS ONLY) IV PRN (15:58)
[2025-02-04] MEDS ORDERED: fentaNYL 100 MCG/2 ML INJECTION As Ordered ONE (16:37)
[2025-02-04] MEDS ORDERED: MIDAZOLAM INJ 2MG/2ML VIAL As Ordered ONE (16:38)
[2025-02-04] MEDS: ISOVUE-300 61% 100ML VIAL IV ONE (16:44)
[2025-02-04] MEDS: LIDOCAINE 1% MDV 20ML VIAL SC ONE (16:44)
[2025-02-04] MEDS ORDERED: ONDANSETRON 4MG 2ML VIAL IV PRN (17:00)
[2025-02-04] MEDS ORDERED: PERCOCET 5MG/325MG TAB PO PRN (17:00)
[2025-02-04] MEDS: INSULIN LISPRO (NovoLOG) PER UNIT SC SCH ×2 (17:30→20:01)
[2025-02-04 17:41] VITALS: BP 123/58; TEMP 98; O2SAT 96
[2025-02-04] MEDS: VANCOMYCIN HCL 1,250 MG, VIAL MATE ADAPTER 1 EACH in NS 250 ML IV ONE (18:01)
[2025-02-04] MEDS: FUROSEMIDE 40MG/4ML VIAL IV SCH (18:01)
[2025-02-04] MEDS: NS (Normal Saline) 0.9% 1,000 ML IV SCH (18:02)
[2025-02-04] MEDS ORDERED: HOME MED LIST COMPLETE! XX SCH (18:35)
[2025-02-04] MEDS ORDERED: FURO40TA2 PO (18:35)
[2025-02-04] MEDS ORDERED: GABA-1172 PO ×2 (18:35)
[2025-02-04] MEDS ORDERED: OXYC1TAB23 PO (18:35)
[2025-02-04] MEDS ORDERED: LEVO50TA5 PO (18:35)
[2025-02-04] MEDS ORDERED: ENAL1TAB52 PO (18:35)
[2025-02-04] MEDS ORDERED: AMLO2.5T3 PO (18:35)
[2025-02-04] MEDS ORDERED: EZET10TA21 PO (18:35)
[2025-02-04] MEDS ORDERED: PANT40TA29 PO (18:35)
[2025-02-04] MEDS ORDERED: METO1TAB32 PO (18:35)
[2025-02-04] MEDS ORDERED: ROSU10TA61 PO (18:35)
[2025-02-04 18:40] VITALS: BP 132/73; TEMP 97.9; O2SAT 91
[2025-02-04 18:55] VITALS: BP 129/62; TEMP 97.7; O2SAT 93
[2025-02-04] MEDS: DOCUSATE SODIUM 100MG CAPSULE PO SCH (19:57)
[2025-02-04] MEDS: MORPHINE 2 MG/ML 1ML VIAL IV PRN (19:59)
[2025-02-05] VITALS (53 sets, daily range): BP systolic 84–136; BP diastolic 45–79; TEMP 97.6–100.7; O2SAT 70–100
[2025-02-05] MEDS: OLANZapine INTRAMUSCULAR 10MG VIAL IM ONE (01:40)
[2025-02-05 02:02] LABS: VENOUS BASE EXCESS -1.6 (-2.0-2.0); VENOUS HCO3 26.7 MMOL/L (23.0-27.0); VENOUS O2 SATURATION 91.4 % (60.0-80.0); VENOUS PARTIAL PRESSURE CO2 62.8 mmHg (38.0-50.0); VENOUS PARTIAL PRESSURE O2 79.8 mmHg (30.0-50.0); VENOUS PH 7.246 UNITS (7.330-7.430); VENOUS TOTAL CO2 28.6 MMOL/L (24.0-28.0)
[2025-02-05] MEDS: FUROSEMIDE 100MG/10ML VIAL IV ONE (02:06)
[2025-02-05 02:15] LABS: ABG BASE EXCESS -7.2 (-2.0-2.0); ABG HCO3 21.6 MMOL/L (22.0-26.0); ABG O2 SATURATION 77.8 % (95.0-99.0); ABG PARTIAL PRESSURE O2 56.4 mmHg (75.0-100.0); ABG STANDARD HCO3 18.3 MMOL/L. (22.0-26.0); ABG TOTAL CO2 23.5 MMOL/L (23.0-31.0)
[2025-02-05 02:21] LABS: ABG PARTIAL PRESSURE CO2 60.3 mmHg (35.0-45.0); ABG pH (ARTERIAL) 7.173 UNITS (7.350-7.450)
[2025-02-05] MEDS: dexmedeTOMidine 200 MCG in IV 1 EA IV SCH (02:30)
[2025-02-05] MEDS ORDERED: dexmedeTOMIDine (4MCG/ML)200MCG/50ML BTL (PRECEDEX) As Ordered ONE (02:30)
[2025-02-05] MEDS: SODIUM BICARBONATE 8.4% INJ 50ML SYRINGE IV STA (02:37)
[2025-02-05] MEDS: PANTOPRAZOLE 40MG TAB (PROTONIX) PO SCH (03:05)
[2025-02-05] MEDS: VANCOMYCIN HCL 750 MG, VIAL MATE ADAPTER 1 EACH in NS 250 ML IV SCH ×2 (03:18→14:05)
[2025-02-05] MEDS: SODIUM BICARBONATE 100 MEQ in D5W 1,000 ML IV SCH (03:59)
[2025-02-05 04:43] LABS: ABG BASE EXCESS 3.3 (-2.0-2.0); ABG HCO3 28.1 MMOL/L (22.0-26.0); ABG O2 SATURATION 97.2 % (95.0-99.0); ABG PARTIAL PRESSURE O2 108.8 mmHg (75.0-100.0); ABG STANDARD HCO3 27.4 MMOL/L. (22.0-26.0); ABG TOTAL CO2 29.4 MMOL/L (23.0-31.0); ABG pH (ARTERIAL) 7.423 UNITS (7.350-7.450)
[2025-02-05 04:54] LABS: BASO % 0.2 % (0.0-1.0); HEMATOCRIT 30.1 % (36.0-47.0); HEMOGLOBIN 9.3 g/dl (12.0-15.5); LYMPH # 0.2 10^3/uL (1.5-5.0); LYMPH % 1.7 % (24.0-44.0); MEAN CORPUSCULAR HEMOGLOBIN 30.1 pg (27.0-33.0); MEAN CORPUSCULAR HGB CONC 30.9 g/dl (32.0-36.5); MEAN CORPUSCULAR VOLUME 97.4 fl (80.0-96.0); MONO # 0.5 10^3/uL (0.0-0.8); MONO % 3.9 % (2.0-8.0); NEUTROPHILS # 11.4 10^3/uL (1.5-8.5); NEUTROPHILS % 93.7 % (36.0-66.0); PLATELET COUNT, AUTOMATED 270 10^3/uL (150-450); RED BLOOD COUNT 3.09 10^6/uL (4.00-5.40); WHITE BLOOD COUNT 12.2 10^3/uL (4.0-10.0)
[2025-02-05 05:46] LABS: ALBUMIN 2.2 G/DL (3.2-5.2); ALKALINE PHOSPHATASE 53 U/L (35-104); ALT/SGPT 15 U/L (7.0-40); AST/SGOT 15 U/L (<34); BILIRUBIN,TOTAL 1.1 MG/DL (0.3-1.2); BLOOD UREA NITROGEN 14 MG/DL (9-23); CALCIUM LEVEL 8.7 MG/DL (8.3-10.6); CARBON DIOXIDE LEVEL 28 MMOL/L (20-31); CHLORIDE LEVEL 99 MMOL/L (98-107); GLOMERULAR FILTRATION RATE > 60.0 (>32); GLUCOSE, FASTING 290 MG/DL (74-106); POTASSIUM SERUM 3.9 MMOL/L (3.5-5.1); SODIUM LEVEL 140 MMOL/L (136-145)
[2025-02-05] MEDS: LEVOTHYROXINE 50MCG TABLET (0.05MG) PO SCH (05:57)
[2025-02-05] MEDS: NS 250 ML IV ONE (06:48)
[2025-02-05] MEDS ORDERED: FUROSEMIDE 40MG/4ML VIAL As Ordered ONE (07:58)
[2025-02-05] MEDS: FUROSEMIDE 40MG/4ML VIAL IV SCH (08:08)
[2025-02-05] MEDS: ENOXAPARIN 40MG/0.4ML SYRINGE (J1650 PER 10MG) SC SCH (08:16)
[2025-02-05] MEDS ORDERED: PERCOCET 5MG/325MG TAB PO SCH (09:00)
[2025-02-05] MEDS: EZETIMIBE 10MG TABLET (ZETIA) PO SCH (09:00)
[2025-02-05] MEDS ORDERED: METOPROLOL SUCC *XL* 25MG TAB (TopROL *XL*) PO SCH (09:00)
[2025-02-05] MEDS: GABAPENTIN 300 MG CAP PO SCH ×2 (09:00→13:00)
[2025-02-05] MEDS: ROSUVASTATIN 10 MG TAB (CRESTOR) PO SCH (09:00)
[2025-02-05] MEDS: FUROSEMIDE injection 100 MG, VIAL 2 BAG 13MM ADAPTER 1 EACH in NS 100 ML IV SCH (10:37)
[2025-02-05 11:10] LABS: VANCOMYCIN LEVEL TROUGH 12.8 UG/ML (10.0-20.0)
[2025-02-05 13:36] LABS: APPEARANCE, BODY FLUID CLEAR (CLEAR); PLEURAL FL COLOR PALE YELLOW (COLORLESS); SOURCE, BODY FLUID PLEURAL
[2025-02-05 14:07] LABS: PH BODY FLUID > 7.800 UNITS (NOT ESTABLISHED); SOURCE, BODY FLUID pH PLEURAL
[2025-02-05 14:31] LABS: SOURCE, BODY FLUID ALBUMIN PLEURAL
[2025-02-05 14:35] LABS: SOURCE, BODY FLUID GLUCOSE PLEURAL; SOURCE, BODY FLUID TRIG PLEURAL; TRIGLYCERIDE, BODY FLUID 22 MG/DL (NOT ESTABLISHED)
[2025-02-05 14:37] LABS: AMYLASE, BODY FLUID < 20 U/L (NOT ESTABLISHED); CHOLESTEROL, BODY FLUID < 25 MG/DL (NOT ESTABLISHED); LDH, BODY FLUID 82 U/L (NOT ESTABLISHED); SOURCE, BODY FLUID AMYLASE PLEURAL; SOURCE, BODY FLUID CHOL PLEURAL; SOURCE, BODY FLUID LDH PLEURAL
[2025-02-05 14:46] LABS: BLOOD UREA NITROGEN 15 MG/DL (9-23); CALCIUM LEVEL 8.3 MG/DL (8.3-10.6); CARBON DIOXIDE LEVEL 29 MMOL/L (20-31); CHLORIDE LEVEL 98 MMOL/L (98-107); CREATININE FOR GFR 0.76 MG/DL (0.55-1.30); GLUCOSE, FASTING 211 MG/DL (74-106); MAGNESIUM LEVEL 1.8 MG/DL (1.8-2.4); POTASSIUM SERUM 3.9 MMOL/L (3.5-5.1); SODIUM LEVEL 140 MMOL/L (136-145)
[2025-02-05 15:00] LABS: SOURCE, BODY FLUID TOT PROTEIN PLEURAL; TOTAL PROTEIN, BODY FLUID < 2.0 G/DL (NOT ESTABLISHED)
[2025-02-05] MEDS: ASPIRIN 81MG ENTERIC TABLET PO SCH (15:45)
[2025-02-05] MEDS: ATORVASTATIN 20 MG TAB PO SCH (15:45)
[2025-02-05 15:57] LABS: THYROID STIMULATING HORMONE 3.046 uIU/ML (0.55-4.78)
[2025-02-05] MEDS: METOPROLOL TART 12.5 MG PER 1/2 TAB PO SCH (18:46)
[2025-02-05 19:43] LABS: ALBUMIN 2.4 G/DL (3.2-5.2); ALKALINE PHOSPHATASE 54 U/L (35-104); ALT/SGPT 16 U/L (7.0-40); AST/SGOT 29 U/L (<34); BILIRUBIN,TOTAL 1.2 MG/DL (0.3-1.2); BLOOD UREA NITROGEN 14 MG/DL (9-23); CALCIUM LEVEL 8.3 MG/DL (8.3-10.6); CARBON DIOXIDE LEVEL 30 MMOL/L (20-31); CHLORIDE LEVEL 100 MMOL/L (98-107); CREATININE FOR GFR 0.71 MG/DL (0.55-1.30); GLOMERULAR FILTRATION RATE > 60.0 (>32); GLUCOSE, FASTING 160 MG/DL (74-106); MAGNESIUM LEVEL 1.7 MG/DL (1.8-2.4); POTASSIUM SERUM 3.9 MMOL/L (3.5-5.1); SODIUM LEVEL 139 MMOL/L (136-145); TOTAL PROTEIN 6.4 G/DL (5.7-8.2)
[2025-02-05] MEDS: ACETAMINOPHEN 325 MG TAB PO PRN (20:58)
[2025-02-05] MEDS: MAG SULF 1GM/100ML (MAG RUN) 1 GM in IV 1 EA IV SCH (21:51)
[2025-02-06] VITALS (19 sets, daily range): BP systolic 101–143; BP diastolic 50–85; TEMP 97.3–99.1; O2SAT 86–99
[2025-02-06] MEDS: KCL 10MEQ/100ML SWI (KRUN) 10 MEQ in IV 1 EA IV SCH ×2 (00:11→05:31)
[2025-02-06 04:41] LABS: BASO % 0.1 % (0.0-1.0); HEMATOCRIT 33.2 % (36.0-47.0); HEMOGLOBIN 10.6 g/dl (12.0-15.5); LYMPH # 0.7 10^3/uL (1.5-5.0); LYMPH % 4.7 % (24.0-44.0); MEAN CORPUSCULAR HEMOGLOBIN 30.5 pg (27.0-33.0); MEAN CORPUSCULAR HGB CONC 31.9 g/dl (32.0-36.5); MEAN CORPUSCULAR VOLUME 95.7 fl (80.0-96.0); MONO # 0.9 10^3/uL (0.0-0.8); MONO % 5.7 % (2.0-8.0); NEUTROPHILS # 13.3 10^3/uL (1.5-8.5); NEUTROPHILS % 89.2 % (36.0-66.0); PLATELET COUNT, AUTOMATED 324 10^3/uL (150-450); RED BLOOD COUNT 3.47 10^6/uL (4.00-5.40)
[2025-02-06 05:07] LABS: ALBUMIN 2.5 G/DL (3.2-5.2); ALKALINE PHOSPHATASE 58 U/L (35-104); ALT/SGPT 18 U/L (7.0-40); AST/SGOT 24 U/L (<34); BILIRUBIN,TOTAL 1.5 MG/DL (0.3-1.2); BLOOD UREA NITROGEN 14 MG/DL (9-23); CALCIUM LEVEL 8.4 MG/DL (8.3-10.6); CARBON DIOXIDE LEVEL 34 MMOL/L (20-31); CHLORIDE LEVEL 97 MMOL/L (98-107); CREATININE FOR GFR 0.84 MG/DL (0.55-1.30); GLOMERULAR FILTRATION RATE > 60.0 (>32); GLUCOSE, FASTING 184 MG/DL (74-106); POTASSIUM SERUM 3.4 MMOL/L (3.5-5.1); SODIUM LEVEL 139 MMOL/L (136-145); TOTAL PROTEIN 6.7 G/DL (5.7-8.2)
[2025-02-06] MEDS: POTASSIUM CHLORIDE 10MEQ SR TABLET PO ONE (08:39)
[2025-02-06] MEDS: PANTOPRAZOLE 40MG TAB (PROTONIX) PO SCH (08:39)
[2025-02-06 11:42] LABS: VANCOMYCIN LEVEL TROUGH 12.7 UG/ML (10.0-20.0)
[2025-02-06] MEDS: METOPROLOL TART 12.5 MG PER 1/2 TAB PO SCH (14:37)
[2025-02-06] MEDS: CEFEPIME HCL 2 GM in DEXTROSE 5% (D5W) ADV/MINI-BAG 50 ML IV SCH (14:37)
[2025-02-07] VITALS (12 sets, daily range): BP systolic 107–135; BP diastolic 57–62; TEMP 97.8–98.3; O2SAT 90–100
[2025-02-07] MEDS: MORPHINE 2 MG/ML 1ML VIAL IV ONE (03:01)
[2025-02-07 07:32] LABS: BASO % 0.1 % (0.0-1.0); EOS % 0.1 % (0.0-3.0); HEMATOCRIT 33.6 % (36.0-47.0); HEMOGLOBIN 10.4 g/dl (12.0-15.5); LYMPH # 0.6 10^3/uL (1.5-5.0); LYMPH % 3.7 % (24.0-44.0); MEAN CORPUSCULAR HEMOGLOBIN 30.1 pg (27.0-33.0); MEAN CORPUSCULAR VOLUME 97.4 fl (80.0-96.0); MONO % 6.7 % (2.0-8.0); NEUTROPHILS # 13.5 10^3/uL (1.5-8.5); NEUTROPHILS % 88.9 % (36.0-66.0); PLATELET COUNT, AUTOMATED 309 10^3/uL (150-450); RED BLOOD COUNT 3.45 10^6/uL (4.00-5.40); WHITE BLOOD COUNT 15.2 10^3/uL (4.0-10.0)
[2025-02-07 07:53] LABS: ALBUMIN 2.4 G/DL (3.2-5.2); ALKALINE PHOSPHATASE 56 U/L (35-104); ALT/SGPT 18 U/L (7.0-40); AST/SGOT 23 U/L (<34); BILIRUBIN,TOTAL 1.3 MG/DL (0.3-1.2); BLOOD UREA NITROGEN 17 MG/DL (9-23); CALCIUM LEVEL 8.5 MG/DL (8.3-10.6); CARBON DIOXIDE LEVEL 34 MMOL/L (20-31); CHLORIDE LEVEL 98 MMOL/L (98-107); CREATININE FOR GFR 0.79 MG/DL (0.55-1.30); GLOMERULAR FILTRATION RATE > 60.0 (>32); GLUCOSE, FASTING 237 MG/DL (74-106); MAGNESIUM LEVEL 1.6 MG/DL (1.8-2.4); POTASSIUM SERUM 3.4 MMOL/L (3.5-5.1); SODIUM LEVEL 138 MMOL/L (136-145); TOTAL PROTEIN 6.7 G/DL (5.7-8.2)
[2025-02-07] MEDS: HALOPERIDOL LACTATE 5MG/ML VIAL IV PRN (08:35)
[2025-02-07] MEDS ORDERED: OLANZapine INTRAMUSCULAR 10MG VIAL IM ONE (09:15)
[2025-02-07 09:41] LABS: HEMOGLOBIN A1c 6.6 % (4.0-6.0)
[2025-02-07] MEDS ORDERED: OLANZapine 5 MG TAB PO PRN (10:45)
[2025-02-07] MEDS ORDERED: GLUCAGON INJ 1MG VIAL SC PRN (10:45)
[2025-02-07] MEDS ORDERED: GLUCOSE 4 GM CHEW PO PRN (10:45)
[2025-02-07] MEDS ORDERED: DEXTROSE 50% 50ML SYRINGE IV PRN (10:45)
[2025-02-07] MEDS: DAPAGLIFLOZIN PROPANEDIOL 10MG TABLET (FARXIGA) PO SCH (12:18)
[2025-02-07] MEDS: POTASSIUM CHLORIDE 10MEQ SR TABLET PO SCH (12:18)
[2025-02-07] MEDS: ENTRESTO 24-26MG TABLET (SACUBITRIL/VALSARTAN) PO SCH (12:18)
[2025-02-07] MEDS: INSULIN LISPRO (NovoLOG) PER UNIT SC SCH ×2 (12:28→21:00)
[2025-02-07] MEDS: MAG SULF 1GM/100ML (MAG RUN) 1 GM in IV 1 EA IV SCH (13:00)
[2025-02-07] MEDS: METOPROLOL TART 25 MG TABLET PO SCH (14:41)
[2025-02-07] MEDS: MAG SULF 1GM/100ML (MAG RUN) 1 GM in IV 1 EA IV ONE (16:18)
[2025-02-07] MEDS: MAGNESIUM OXIDE 400MG TAB (MAG-OX) PO SCH (21:53)
[2025-02-08] MEDS: diphenhydrAMINE 50MG/ML VIAL IV ONE (00:09)
[2025-02-08] MEDS: LORazepam 2 MG/ML 1ML VIAL IV STA (00:09)
[2025-02-08] MEDS: ACETAMINOPHEN *IV* 500 MG in IV 1 EA IV ONE (00:27)
[2025-02-08] MEDS: HALOPERIDOL LACTATE 5MG/ML VIAL IV ONE (01:55)
[2025-02-08] MEDS: MAG SULF 1GM/100ML (MAG RUN) 1 GM in IV 1 EA IV ONE (01:58)
[2025-02-08 03:27] VITALS: BP 100/67; TEMP 98; O2SAT 93
[2025-02-08 06:00] VITALS: BP 115/87
[2025-02-08 08:03] VITALS: BP 111/60; TEMP 98; O2SAT 96
[2025-02-08 08:36] LABS: BASO % 0.3 % (0.0-1.0); EOS # 0.3 10^3/uL (0.0-0.5); EOS % 2.2 % (0.0-3.0); HEMATOCRIT 34.7 % (36.0-47.0); LYMPH % 8.3 % (24.0-44.0); MEAN CORPUSCULAR HEMOGLOBIN 30.3 pg (27.0-33.0); MEAN CORPUSCULAR HGB CONC 31.7 g/dl (32.0-36.5); MEAN CORPUSCULAR VOLUME 95.6 fl (80.0-96.0); MONO # 0.8 10^3/uL (0.0-0.8); MONO % 7.2 % (2.0-8.0); NEUTROPHILS # 9.4 10^3/uL (1.5-8.5); NEUTROPHILS % 81.7 % (36.0-66.0); PLATELET COUNT, AUTOMATED 328 10^3/uL (150-450); RED BLOOD COUNT 3.63 10^6/uL (4.00-5.40); WHITE BLOOD COUNT 11.5 10^3/uL (4.0-10.0)
[2025-02-08 09:02] LABS: ALBUMIN 2.3 G/DL (3.2-5.2); ALKALINE PHOSPHATASE 54 U/L (35-104); ALT/SGPT 21 U/L (7.0-40); AST/SGOT 39 U/L (<34); BILIRUBIN,TOTAL 1.3 MG/DL (0.3-1.2); BLOOD UREA NITROGEN 20 MG/DL (9-23); CALCIUM LEVEL 8.7 MG/DL (8.3-10.6); CARBON DIOXIDE LEVEL 33 MMOL/L (20-31); CHLORIDE LEVEL 100 MMOL/L (98-107); CREATININE FOR GFR 0.91 MG/DL (0.55-1.30); GLOMERULAR FILTRATION RATE > 60.0 (>32); GLUCOSE, FASTING 168 MG/DL (74-106); MAGNESIUM LEVEL 2.2 MG/DL (1.8-2.4); POTASSIUM SERUM 3.5 MMOL/L (3.5-5.1); SODIUM LEVEL 142 MMOL/L (136-145); TOTAL PROTEIN 6.6 G/DL (5.7-8.2)
[2025-02-08] MEDS: LevoFLOXacin 750 MG TABLET PO SCH (11:48)
[2025-02-08] MEDS: DOXYCYCLINE HYCLATE 100MG TABLET PO SCH (11:48)
[2025-02-08] MEDS: POTASSIUM CHLORIDE 10MEQ SR TABLET PO ONE (11:49)
[2025-02-08] MEDS ORDERED: ENTR1TAB PO (12:18)
[2025-02-08] MEDS ORDERED: LEVO75TAB PO (12:18)
[2025-02-08] MEDS ORDERED: ROSU20TA86 PO (12:18)
[2025-02-08] MEDS ORDERED: DOXY100T PO (12:18)
[2025-02-08] MEDS ORDERED: ASPI81TAEC PO (12:18)
[2025-02-08] MEDS ORDERED: FARX1TAB3 PO (12:18)
[2025-02-08] MEDS ORDERED: METO1TAB87 PO (12:18)
[2025-02-08] MEDS ORDERED: FUROSEMIDE 40MG/4ML VIAL IV SCH (17:00)
[2025-02-08] MEDS ORDERED: OLANZapine 5 MG TAB PO SCH (21:00)
== END 2025-02-08 13:11 | disposition short-term general hospital (02) | DRG 252 ==
LOC: M ED 07:05 → EDBD 07:05 → M ED INP 12:55 → M PCU 17:15 → M ICU 02-05 02:28 → M PCU 02-06 18:21
PROVIDERS: ADMIT Internal Medicine; ATTEND Internal Medicine
PROC: 047L3ZZ Dilation of Left Femoral Artery, Percutaneous Approach (ICD-10-PCS; principal; 2025-02-04 15:00)
PROC: 0W9930Z Drainage of Right Pleural Cavity with Drainage Device, Percutaneous Approach (ICD-10-PCS; 2025-02-05)
DX: E11.51 Type 2 diabetes mellitus with diabetic peripheral angiopathy without gangrene (principal); G93.41 Metabolic encephalopathy; J96.01 Acute respiratory failure with hypoxia; J96.02 Acute respiratory failure with hypercapnia; I50.23 Acute on chronic systolic (congestive) heart failure; I21.A1 Myocardial infarction type 2; I70.92 Chronic total occlusion of artery of the extremities; J90 Pleural effusion, not elsewhere classified; E87.29 Other acidosis; N39.0 Urinary tract infection, site not specified; J81.1 Chronic pulmonary edema; L97.929 Non-pressure chronic ulcer of unspecified part of left lower leg with unspecified severity; L03.116 Cellulitis of left lower limb; I77.1 Stricture of artery; E03.9 Hypothyroidism, unspecified; K21.9 Gastro-esophageal reflux disease without esophagitis; E11.40 Type 2 diabetes mellitus with diabetic neuropathy, unspecified; I11.0 Hypertensive heart disease with heart failure; K74.60 Unspecified cirrhosis of liver; I70.202 Unspecified atherosclerosis of native arteries of extremities, left leg; I35.0 Nonrheumatic aortic (valve) stenosis; E78.5 Hyperlipidemia, unspecified; M19.90 Unspecified osteoarthritis, unspecified site

== ENCOUNTER 2025-02-23 14:51 | Emergency (ER) | payer MEDICARE ==
[~2025-02-23] VITALS: Ht 152.4 cm; Wt 76.8 kg
[~2025-02-23 14:51] MED LIST changes: +AMLO2.5T3 PO; +ASPI81TAEC PO; -BARIUM SULFATE 700 MG TABLET (E-Z-DISK) As Ordered ONE; +DOXY100T PO; -E-Z-PAQUE 96% w/w SUSP 176GM BTL As Ordered ONE; +ENAL1TAB52 PO; +ENTR1TAB PO; +EZET10TA21 PO; +FARX1TAB3 PO; +FURO40TA2 PO; +GABA-1172 PO; +LEVO50TA5 PO; +LEVO75TAB PO; +METO1TAB32 PO; +METO1TAB87 PO; +OXYC1TAB23 PO; +PANT40TA29 PO; +ROSU10TA61 PO; +ROSU20TA86 PO; -VARIBAR NECTAR 40% w/v 240ML SUSP BTL As Ordered ONE; -VARIBAR PUDDING 40% w/v 230ML TUBE As Ordered ONE
[2025-02-23 16:50] VITALS: BP 104/49; TEMP 97.6; O2SAT 98
== END 2025-02-23 16:55 | disposition home or self-care (01) ==
LOC: EDBD 14:51 → M ED 14:51
DX: I73.9 Peripheral vascular disease, unspecified (principal); L97.929 Non-pressure chronic ulcer of unspecified part of left lower leg with unspecified severity; E11.9 Type 2 diabetes mellitus without complications; I10 Essential (primary) hypertension; E78.5 Hyperlipidemia, unspecified; K21.9 Gastro-esophageal reflux disease without esophagitis; Z87.891 Personal history of nicotine dependence; Z79.82 Long term (current) use of aspirin; Z79.899 Other long term (current) drug therapy

== ENCOUNTER 2025-03-11 13:52 | Emergency (ER) | payer MEDICARE ==
[~2025-03-11] VITALS: Ht 152.4 cm; Wt 76.8 kg
[2025-03-11] MEDS ORDERED: CLOP75TA2 PO (14:06)
[2025-03-11 15:22] LABS: CALCIUM LEVEL 8.3 MG/DL (8.3-10.6); CREATININE FOR GFR 1.18 MG/DL (0.55-1.30); GLOMERULAR FILTRATION RATE 46.7 (>32); POTASSIUM SERUM 4.3 MMOL/L (3.5-5.1)
[2025-03-11 15:25] LABS: BASO % 0.1 % (0.0-1.0); EOS % 0.3 % (0.0-3.0); LYMPH # 0.8 10^3/uL (1.5-5.0); LYMPH % 5.5 % (24.0-44.0); MEAN CORPUSCULAR HEMOGLOBIN 29.1 pg (27.0-33.0); MEAN CORPUSCULAR HGB CONC 31.7 g/dl (32.0-36.5); MEAN CORPUSCULAR VOLUME 91.6 fl (80.0-96.0); MONO % 6.6 % (2.0-8.0); NEUTROPHILS # 12.9 10^3/uL (1.5-8.5); NEUTROPHILS % 86.9 % (36.0-66.0); PLATELET COUNT, AUTOMATED 238 10^3/uL (150-450); RED BLOOD COUNT 2.27 10^6/uL (4.00-5.40); WHITE BLOOD COUNT 14.8 10^3/uL (4.0-10.0)
[2025-03-11 15:27] LABS: HEMATOCRIT 20.8 % (36.0-47.0); HEMOGLOBIN 6.6 g/dl (12.0-15.5)
[2025-03-11 15:33] LABS: C REACTIVE PROTEIN QUANTITATIV 11.73 MG/DL (<1.0)
[2025-03-11] MEDS ORDERED: ceFAZolin SOD 1 GM in DEXTROSE 5% (D5W) ADV/MINI-BAG 50 ML IV ONE (15:40)
[2025-03-11 15:43] LABS: ERYTHROCYTE SEDIMENTATION RATE 38 mm/hr (0-30)
[2025-03-11] MEDS: PANTOPRAZOLE 40MG VIAL IV ONE (16:04)
[2025-03-11] MEDS: CEFEPIME HCL 2 GM in DEXTROSE 5% (D5W) ADV/MINI-BAG 50 ML IV ONE (16:07)
[2025-03-11] MEDS ORDERED: FARX1TAB3 PO (16:46)
[2025-03-11] MEDS ORDERED: ASPI81TA26 PO (16:46)
[2025-03-11] MEDS ORDERED: ATOR80TA59 PO (16:50)
[2025-03-11] MEDS ORDERED: ENTR1TAB PO (16:50)
[2025-03-11] MEDS ORDERED: CARV6.25 PO (16:50)
[2025-03-11] MEDS ORDERED: SPIR-10 PO (16:50)
[2025-03-11] MEDS ORDERED: AMIO200T49 PO (16:50)
[2025-03-11] MEDS ORDERED: VITA100093 PO (16:52)
[2025-03-11] MEDS ORDERED: ACET32TAB PO (16:52)
[2025-03-11] MEDS ORDERED: OMEG10002 PO (16:52)
[2025-03-11] MEDS ORDERED: VITA100T15 PO (16:52)
[2025-03-11 16:55] LABS: KETONE, URINE AUTO RFX NEGATIVE (NEGATIVE); LEUKOCYTE ESTERASE UR AUTO RFX NEGATIVE (NEGATIVE); MUCUS, URINE RFX SMALL (NEGATIVE); NITRITE, URINE AUTO RFX NEGATIVE (NEGATIVE); RBC, URINE AUTO RFX 1 /HPF (0-3); SQUAM EPITHELIAL CELL UR AURFX 0 /HPF (0-6); WBC, URINE AUTO RFX 0 /HPF (0-3)
[2025-03-11] MEDS ORDERED: HOME MED LIST COMPLETE! XX SCH (16:55)
[2025-03-11 17:10] LABS: INR 1.05; PARTIAL THROMBOPLASTIN TIME 33.5 SECONDS (24.8-34.2)
[2025-03-11] MEDS: VANCOMYCIN HCL 1,000 MG, VIAL MATE ADAPTER 1 EACH in NS 250 ML IV ONE (18:18)
[2025-03-11 20:02] VITALS: BP 113/58; TEMP 97.7; O2SAT 92
[2025-03-11 20:17] VITALS: BP 117/61; TEMP 98.7; O2SAT 96
[2025-03-11] MEDS: ACETAMINOPHEN *IV* 1,000 MG in IV 1 EA IV ONE (21:12)
[2025-03-11 21:46] VITALS: BP 114/57; TEMP 98.1; O2SAT 98
[2025-03-11 22:08] VITALS: BP 116/70; TEMP 97.5; O2SAT 98
[2025-03-11 22:23] VITALS: BP 122/60; TEMP 98; O2SAT 98
[2025-03-12] MEDS: CEFEPIME HCL 2 GM in DEXTROSE 5% (D5W) ADV/MINI-BAG 50 ML IV SCH
[2025-03-12 00:03] VITALS: BP 118/64; TEMP 97.6; O2SAT 95
[2025-03-12 00:15] VITALS: BP 121/62; TEMP 97.6; O2SAT 94
[2025-03-12] MEDS ORDERED: VANCOMYCIN HCL 750 MG, VIAL MATE ADAPTER 1 EACH in NS 250 ML IV SCH (06:00)
== END 2025-03-12 00:48 | disposition short-term general hospital (02) ==
LOC: EDBD 13:52 → M ED 13:52
DX: L03.116 Cellulitis of left lower limb (principal); A41.9 Sepsis, unspecified organism; K92.2 Gastrointestinal hemorrhage, unspecified; D62 Acute posthemorrhagic anemia; S81.802A Unspecified open wound, left lower leg, initial encounter; E03.9 Hypothyroidism, unspecified; K21.9 Gastro-esophageal reflux disease without esophagitis; I10 Essential (primary) hypertension; E11.9 Type 2 diabetes mellitus without complications; E78.5 Hyperlipidemia, unspecified; Z87.891 Personal history of nicotine dependence; Z79.82 Long term (current) use of aspirin; Z79.02 Long term (current) use of antithrombotics/antiplatelets; Z79.2 Long term (current) use of antibiotics; Z79.899 Other long term (current) drug therapy; Y92.9 Unspecified place or not applicable; Y93.9 Activity, unspecified; Y99.9 Unspecified external cause status
CPT/HCPCS: 36430; 80048; 81001; 83605; 85025; 85610; 85652; 85730; 86140; 86850; 86900; 86901; 86920; 87040; 87070; 87077; 87186; 87205; 93971; 96365; 96366; 96375; 99285; J0131; J0692; J2470; J3370; P9016

== ENCOUNTER 2025-03-25 12:54 | Emergency (ER) | payer MEDICARE ==
[~2025-03-25] VITALS: Ht 152.4 cm; Wt 75.0 kg
[~2025-03-25 12:54] MED LIST changes: +ACET32TAB PO; +AMIO200T49 PO; +ASPI81TA26 PO; +ATOR80TA59 PO; +CARV6.25 PO; +CLOP75TA2 PO; +OMEG10002 PO; +SPIR-10 PO; +VITA100093 PO; +VITA100T15 PO
[2025-03-25 13:05] VITALS: TEMP 96.7
[2025-03-25] MEDS: NORCO, ANEXSIA 5/325MG TABLET (HYDROcodone/ACETAMINOPHEN) PO ONE (13:43)
[2025-03-25 13:55] LABS: BASO % 0.4 % (0.0-1.0); EOS # 0.1 10^3/uL (0.0-0.5); EOS % 1.3 % (0.0-3.0); HEMATOCRIT 27.9 % (36.0-47.0); HEMOGLOBIN 8.4 g/dl (12.0-15.5); LYMPH # 0.5 10^3/uL (1.5-5.0); LYMPH % 5.4 % (24.0-44.0); MEAN CORPUSCULAR HEMOGLOBIN 29.1 pg (27.0-33.0); MEAN CORPUSCULAR HGB CONC 30.1 g/dl (32.0-36.5); MEAN CORPUSCULAR VOLUME 96.5 fl (80.0-96.0); MONO # 0.7 10^3/uL (0.0-0.8); MONO % 7.4 % (2.0-8.0); NEUTROPHILS # 7.8 10^3/uL (1.5-8.5); PLATELET COUNT, AUTOMATED 348 10^3/uL (150-450); RED BLOOD COUNT 2.89 10^6/uL (4.00-5.40); WHITE BLOOD COUNT 9.2 10^3/uL (4.0-10.0)
[2025-03-25 14:25] LABS: CALCIUM LEVEL 8.8 MG/DL (8.3-10.6); CREATININE FOR GFR 0.78 MG/DL (0.55-1.30); GLOMERULAR FILTRATION RATE 76.7 (>32); POTASSIUM SERUM 4.5 MMOL/L (3.5-5.1)
[2025-03-25 16:00] VITALS: BP 130/63; O2SAT 98
[2025-03-25] MEDS ORDERED: HYDR-3713 PO (16:02)
== END 2025-03-25 16:50 | disposition home or self-care (01) ==
LOC: M ED 12:54 → EDBD 12:54 → M ED 16:50
DX: I73.9 Peripheral vascular disease, unspecified (principal); L97.929 Non-pressure chronic ulcer of unspecified part of left lower leg with unspecified severity; E11.9 Type 2 diabetes mellitus without complications; I10 Essential (primary) hypertension; E78.5 Hyperlipidemia, unspecified; J44.9 Chronic obstructive pulmonary disease, unspecified; Z79.82 Long term (current) use of aspirin; Z79.02 Long term (current) use of antithrombotics/antiplatelets; Z79.1 Long term (current) use of non-steroidal anti-inflammatories (NSAID); Z79.899 Other long term (current) drug therapy